=== PATIENT | male | born 1935 | race Caucasian/White ===

== ENCOUNTER → 2019-07-08 08:41 | Outpatient (REF) | payer MEDICARE, OTHER, SELFPAY | LOC: ANHLAB 08:41 | PROVIDERS: Visit Provider Nurse Practitioner Family | DX: C44.42 Squamous cell carcinoma of skin of scalp and neck (principal); C44.92 Squamous cell carcinoma of skin, unspecified; C44.722 Squamous cell carcinoma of skin of right lower limb, including hip | CPT/HCPCS: 88305; 88331; 88332 ==